=== PATIENT | male | born 1995 | race Two or more races ===

== ENCOUNTER → 2025-01-15 | Emergency (ER) | payer OTHER ==
[~2025-01-15] VITALS: Ht 172.7 cm; Wt 77.1 kg
[2025-01-15 17:25] LABS: ALBUMIN 4.5 gm/dL (3.4-5.0); BILIRUBIN TOTAL 2.56 mg/dL (0.3-1.2); CALCIUM 9.2 mg/dL (8.5-10.1); CREATININE SERUM 0.97 mg/dL (0.70-1.30); GFR 92.16; GLOBULINA 3.9 G/DL (2.4-3.5); POTASSIUM 3.66 mEq/L (3.5-5.1); TOTAL PROTEIN 8.4 gm/dL (6.4-8.2)
[2025-01-15 18:04] LABS: BASO % 0.8 % (0.1-1.2); EOS # 0.09 (0.04-0.54); EOS % 1.1 % (0.7-7.0); HEMATOCRIT 43.1 % (40.1-51.0); HEMOGLOBIN 15.3 g/dL (13.7-17.5); LYMPH # 2.35 (1.18-3.74); LYMPH % 27.5 % (19.3-53.1); MEAN CORPUSCULAR HEMOGLOBIN 30.6 pg (25.6-32.2); MONO # 0.72 (0.24-0.82); MONO % 8.4 % (4.7-12.5); PLATELET COUNT 350 K/uL (163-369); RED CELL DISTRIBUTION WIDTH 12.2 % (11.6-14.4)
== END | disposition home or self-care (01) ==
LOC: ER 15:09
PROVIDERS: General Practice; Preventive Medicine Public Health & General Preventive Medicine
DX: F41.8 Other specified anxiety disorders (principal); R07.9 Chest pain, unspecified